=== PATIENT | male | born 2000 | race Caucasian/White ===

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

== ENCOUNTER 2025-01-17 09:45 | Day surgery (SDC) | payer OTHER ==
[~2025-01-17 09:45] MED LIST: LIDOCAINE 1% (10MG/ML) FOR IV START INTRADERMA PRN
[2025-01-17] MEDS: IV FLUID CONTINUATION 1,000 ML IV ONE ×2 (10:15→11:08)
[2025-01-17] MEDS: LACTATED RINGERS 1,000 ML IV SCH (10:27)
[2025-01-17 10:29] VITALS: TEMP 97.3
[2025-01-17] MEDS ORDERED: PROPOFOL 10 MG/ML 20 ML VIAL IV ONE (11:13)
--- NOTE | 2025-01-17 11:19 | P.PCN ---
Date of Procedure: 01/17/25 Procedure(s) Performed: BRIEF HISTORY: Patient is a 24-year-old, pleasant, white male scheduled for an upper endoscopy as a part evaluation of longstanding history of GERD for almost 15 years duration.. Omeprazole 20 mg daily with good relief of the symptoms PROCEDURE PERFORMED: Esophagogastroduodenoscopy with biopsy PREOPERATIVE DIAGNOSIS: Longstanding history of GERD. IV sedation per anesthesia. PROCEDURE: After informed consent was obtained, the patient was brought into the endoscopy unit. IV sedation was administered by Anesthesia under continuous monitoring. Initially the Olympus GIF-140 video endoscope was inserted into the mouth. Esophagus intubated without any difficulty. It was gradually advanced into the stomach and duodenum and carefully examined. The bulb and the second part of the duodenum appeared normal. The scope at this time was withdrawn to the stomach, adequately insufflated with air, and upon careful examination, mucosa of the antrum had patchy areas of erythema consistent with gastritis and biopsies were done from this area., body, cardia and the fundus appeared normal. The scope was then withdrawn into the esophagus. Small hiatal hernia. The GE junction was located at 39 cm from the incisors. The esophagus appeared normal. There were no erosions or ulcerations seen and the patient tolerated the procedure well. IMPRESSION: 1. Small hiatal hernia but no evidence of esophagitis or Mcnair's esophagus. 2. Mild antral gastritis. RECOMMENDATIONS: The findings of this examination were discussed with the patient as well as his family. He was advised to follow the biopsy results. Continue with omeprazole 20 mg daily and follow antireflux measures..
[2025-01-17 11:31] VITALS: RESP 16
[2025-01-17 11:59] VITALS: BP 112/72; PULSE 66
== END 2025-01-17 12:04 | disposition home or self-care (01) ==
LOC: ORWHC2ENDO 09:45
PROVIDERS: ATTEND Internal Medicine Gastroenterology
DX: K29.50 Unspecified chronic gastritis without bleeding (principal); K21.9 Gastro-esophageal reflux disease without esophagitis; K44.9 Diaphragmatic hernia without obstruction or gangrene; F41.9 Anxiety disorder, unspecified; F32.A Depression, unspecified; Z87.891 Personal history of nicotine dependence; Z88.0 Allergy status to penicillin; Z79.899 Other long term (current) drug therapy
CPT/HCPCS: 88305; 43239; J2704